=== PATIENT | male | born 1935 | race Caucasian/White ===

== ENCOUNTER → 2017-01-28 | Outpatient (CLI) | payer MEDICARE, BC ==
[~2017-01-28] MED LIST: ASPIRIN 81MG TA81 MG PO; CARVEDILOL 1212.5 MG PO; CARVEDILOL6.25 MG PO; CIPRO 500MG TA500 MG PO; CLOPIDOGREL75 MG PO; COREG12.5 MG PO; FUROSEMIDE20 MG PO; INDOMETHACIN50 MG; IRON TABLETS325 MG PO; LEVAQUIN500 MG PO; MACRODANTIN100 MG PO; MECLIZINE12.5 MG PO; NITROGLYCERIN0.4 MG SL; NORCO 325 MG-51 TAB PO; PRAVASTATIN 40M40 MG PO; PRINIVIL2.5 MG PO; TAMSULOSIN HYD0.4 MG PO; ZESTRIL 5MG TABL5 MG PO
--- NOTE | 2017-01-28 15:10 | RADIOLOGY REPORT PS360 ---
PROCEDURE: 2-D M-mode and color Doppler study INDICATIONS FOR THE TEST: Chest pain X COPD Heart Murmur Tobacco Smoking Palpitations Fatigue Syncope Edema HypertensionXDiabetes Mellitus Rheumatic Fever SOB DOEXObesity Hyperlipidemia Family History HD Additional History CAD PATIENT INFORMATION HEIGHT: 72 WEIGHT:170 GENDER: Male B/P:120/70 2-D/M-MODE INTERPRETATION: 2-D MEASUREMENTS OBSERVED VALUES IN CMS Right Ventricular Dimension (RVDd) 2.2 Interventricular Septum (Thickness)(IVsd) 1.0 Left Ventricular Internal Dimensions(LVIDd) 5.7 Left Ventricular Posterior Wall (Thickness)(LVPWd) 1.0 Aortic Root 3.7 Aortic Cusp Separation 2.0 Left Atrial Dimensions (LAD) 3.0 2D 1. Left atrium is mildly enlarged, left ventricle is normal size, visually estimated ejection fraction approximately 40%, there appears to be hypokinesis involving mid to distal septum and anteroapical and apical wall. 2. The right atrium and right ventricle are normal size and contractility. 3. The aortic valve is a minimally thickened and fibrosed. 4. The mitral and tricuspid valve leaflets are minimally thickened. 5. The pulmonic valve is poorly visualized. 6. No significant pericardial effusion noted. DOPPLER INTERROGATION: Doppler interrogation of the aortic, mitral and tricuspid valvular presence of mild mitral and tricuspid regurgitation tricuspid and jet velocity insufficient for calculation of the right ventricular systolic pressure, grade 1 diastolic dysfunction seen without tissue Doppler evidence of raised left atrial pressure. CONCLUSION: 1. Mildly enlarged left atrium, normal left ventricular size, mild concentric left ventricular hypertrophy, visually estimated ejection fraction 40% with multiple segmental wall motion abnormality described above. Grade 1 diastolic dysfunction seen without tissue Doppler evidence of raised left atrial pressure. 2. Mild mitral and tricuspid regurgitation. 3. No significant pericardial effusion noted.
== END ==
LOC: RT 09:43
DX: R10.84 Generalized abdominal pain (principal); R06.09 Other forms of dyspnea

== ENCOUNTER → 2017-02-18 | Outpatient (CLI) | payer MEDICARE, BC ==
--- NOTE | 2017-02-18 15:02 | RADIOLOGY REPORT PS360 ---
UGI SERIES W/SMALL BOWEL HISTORY: WGT LOSS, GERD, prior colectomy ORDERING PHYSICIAN: KIMBERLY ALANIZ MD PATIENT AGE: 81 years COMPARISON: None FINDINGS: There is a small sliding hiatal hernia. Reflux was not demonstrated during the exam. No ulcer or mass is evident. There is a small duodenal diverticulum projecting off the medial aspect of the descending portion of the duodenum The small bowel has an unremarkable appearance. No obstructing mass or mucosal abnormality is evident. No constricting areas. Right lower quadrant ileostomy is patent.. FLUOROSCOPY TIME : 3 minutes and 1 second . IMPRESSION: 1. Small sliding hiatal hernia. 2. Right lower quadrant ileostomy. 3. Small duodenal diverticulum 4. Otherwise negative upper GI with small bowel follow-through
== END ==
LOC: RAD 08:29
DX: K21.9 Gastro-esophageal reflux disease without esophagitis (principal); R63.4 Abnormal weight loss